=== PATIENT | female | born 1995 | race Caucasian/White ===

== ENCOUNTER 2016-11-08 02:43 | Emergency (ER) | payer BC ==
[~2016-11-08] VITALS: Ht 172.7 cm; Wt 59.1 kg
[2016-11-08 02:56] VITALS: TEMP 96.3
[2016-11-08] MEDS ORDERED: PROZAC 20MG20 MG PO (03:01)
[2016-11-08 05:08] VITALS: BP 78/61; PULSE 90
== END 2016-11-08 05:16 | disposition home or self-care (01) ==
LOC: COL.ER 02:43
DX: F10.129 Alcohol abuse with intoxication, unspecified (principal); Y90.7 Blood alcohol level of 200-239 mg/100 ml; R11.2 Nausea with vomiting, unspecified
CPT/HCPCS: J2405; J7030